=== PATIENT | male | born 2000 | race Caucasian/White ===

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

== ENCOUNTER → 2022-10-09 | Outpatient (CLI) | payer OTHER, SELFPAY ==
--- NOTE | 2022-10-09 16:30 | US_ITS ---
EXAM: US SOFT TISSUES HEAD AND NECK, THYROID CLINICAL INDICATION: ENLARGED THYROID VS LYMPH NODE ON RT TECHNIQUE: Fregoso scale and color doppler imaging was performed of the thyroid gland. COMPARISON: No relevant prior studies available. FINDINGS: LEFT THYROID LOBE: Left thyroid lobe measures 4.2 x 1.3 x 1.6 cm with uniform echogenicity. Incidental 3 mm colloid cyst is noted. RIGHT THYROID LOBE: Right thyroid lobe measures 5.6 x 1.3 x 1.6 cm. Normal homogeneous echotexture. No thyroid nodules are present. ISTHMUS: Isthmus measures 3 mm in AP dimension. No thyroid nodules are present. US/Thyroid IMPRESSION: No significant thyroid findings. Electronically Signed: Foster Christopher MD at 8:50 EDT ,
== END | disposition home or self-care (01) ==
LOC: US 16:29
PROVIDERS: PCP Family Medicine; Referring Provider Family Medicine; Visit Provider Family Medicine
DX: E04.9 Nontoxic goiter, unspecified (principal)
CPT/HCPCS: 76536

== ENCOUNTER 2023-02-23 23:39 | Emergency (ER) | payer OTHER, SELFPAY ==
[2023-02-23 23:40] VITALS: BP 143/87; PULSE 74; RESP 15; TEMP 36.3; O2SAT 99; BMI 31.1
--- NOTE | 2023-02-24 02:04 | EX.ED.DYSGE1 ---
HPI History of Present Illness Chief Complaint: Ear Problem Informant: patient Narrative Narrative: Patient is a 22-year-old male with no significant past medical history. He reports he had 2 to 3 days of nasal congestion sore throat and cough. He reportedly went to an urgent care yesterday where he had a negative COVID and strep swab. He states that today he developed left sided ear pain. He denies any trauma or discharge from the ear and he states there is been no recent water exposure. He states that despite taking [id number] medication the pain has persisted and he is concerned he has now developed a ear infection and comes in for evaluation [facility] Medical History (Updated 02/24/23 @ 02:[address] Darron Brown, DO) Acute pharyngitis, unspecified Aphthous ulcer of mouth Encounter for screening for COVID-19 GERD (gastroesophageal reflux disease) Pyloric stenosis Home Medications omeprazole 20 mg capsule,delayed release 40 mg PO DAILY 05/11/18 [History Last Taken 05/11/18] famotidine 20 mg tablet 40 mg PO DAILY 07/02/19 [History Last Taken Unknown] azelastine 137 mcg (0.1 %) nasal spray aerosol 2 spray intranasal BID #30 mL 02/24/23 [Rx Last Taken Unknown] cefdinir 300 mg capsule 300 mg PO BID 7 days #14 caps 02/24/23 [Rx Last Taken Unknown] prednisone 20 mg tablet 40 mg (2 x 20 mg) PO DAILY 7 days #14 tabs 02/24/23 [Rx Last Taken Unknown] Allergy/AdvReac Type Severity Reaction Status Date / Time amoxicillin [From Augmentin] Allergy Hives Verified 02/23/23 23:43 clavulanic acid Allergy Hives Verified 02/23/23 23:43 [From Augmentin] Family History Other Cancer Diabetes Hypertension Myocardial infarction Surgical History History of tonsillectomy Social History Smoking Status: Never smoker alcohol intake: never ROS ROS ED Constitutional Constitutional ED: Denies chills or fever(s) ENT ENT ED: Reports ear pain, rhinorrhea and sore throat Cardiovascular Cardiovascular: Denies chest pain Respiratory/Chest Respiratory/Chest: Reports cough; Denies dyspnea Gastrointestinal Gastrointestinal: Denies abdominal pain, diarrhea, nausea or vomiting Genitourinary Genitourinary ED: Denies dysuria Musculoskeletal Musculoskeletal: Reports myalgias Integumentary Denies rash Neurologic Neurologic: Denies headache(s) Hematologic/Lymphatic Hematologic/Lymphatic: Denies easy bleeding or easy bruising EXAM Physical Exam Const Vital Signs: 02/23/23 23:40 02/24/23 02:23 Temperature 97.4 F L Temperature Source Temporal Pulse Rate 74 79 Respiratory Rate 15 18 Blood Pressure 143/87 H 126/67 H Blood Pressure Mean 105 Pulse Ox 99 100 Oxygen Delivery Method Room Air Positive well nourished and well developed General Appearance ED: well developed HEENT HEENT Narrative: Nasal mucosa is hyperemic and boggy with enlarged inferior nasal turbinates Cobblestoning is noted in the posterior pharynx consistent with sinus drainage without secondary changes to suggest infection Right TM and canal are normal. Left canal is normal but the left TM is erythematous and bulging with loss of landmarks consistent with otitis media Eyes PERRL and EOMs intact bilaterally Neck supple Neck Narrative: No nuchal rigidity or meningeal signs noted Resp normal respiratory effort and clear to auscultation bilaterally Cardio regular rate and regular rhythm Extremity normal to inspection Neuro oriented x3, CN's II-XII intact bilaterally and no sensory deficits noted Sensorium / Orientation: alert Motor Exam: strength 5/5 throughout Psych mental status grossly normal Skin no rashes or lesions noted MDM MDM MDM Narrative Medical decision making narrative: Patient presented to the ER with stable vitals. Differential diagnosis is for upper respiratory tract infection versus otitis media versus otitis externa versus eustachian tube dysfunction. Physical exam showed a left tympanic membrane which was asymmetric to right with erythema loss of landmarks and bulging consistent with infection. He does not physical exam findings to suggest otitis externa or mastoiditis. As he is recent been tested for strep and COVID I feel no need for repeat testing. Therefore this time patient has an upper respiratory tract infection with secondary left otitis media and therefore he will be started on antibiotics but as there is no signs of systemic infection, mastoiditis, or malignant otitis externa he is otherwise safe for discharge History & Record Review Discussion w/independent historian: Patient Discharge Plan Triage Chief Complaint: Ear Problem ED Provider: Darron Brown Dx/Rx/DC Orders Clinical Impression: Acute left otitis media, URI (upper respiratory infection) Instructions: ED Otitis Media Antibiotic ... Prescriptions: New prednisone 20 mg tablet 40 mg PO DAILY 7 Days Qty: 14 0RF cefdinir 300 mg capsule 300 mg PO BID 7 Days Qty: 14 0RF azelastine 137 mcg (0.1 %) aerosol,spray 2 spray intranasal BID Qty: 30 0RF Rx Instructions: administer into each nostril No Action omeprazole 20 MG capsule 40 mg PO DAILY famotidine 20 MG tablet 40 mg PO DAILY Stand Alone Forms: ED Work / School Excuse Primary Care Provider: Mesha Kim Referrals: Mesha Kim MD [Primary Care Provider] - Disposition Disposition: Home, Self Care Discharge Date/Time: 02/24/23 02:24
[2023-02-24] MEDS: Oxycodone/Apap 5/325 Tablet PO (02:12)
[2023-02-24] MEDS: dexAMETHasone 10 MG/ML Vial PO.IVFORM (02:12)
[2023-02-24] MEDS: Cefdinir 300 MG Capsule PO (02:17)
[2023-02-24 02:23] VITALS: BP 126/67; PULSE 79; RESP 18; O2SAT 100
== END 2023-02-24 02:24 | disposition home or self-care (01) ==
PROVIDERS: Emergency Provider Emergency Medicine; PCP Family Medicine; Visit Provider Emergency Medicine
DX: J06.9 Acute upper respiratory infection, unspecified (principal); H66.92 Otitis media, unspecified, left ear; K21.9 Gastro-esophageal reflux disease without esophagitis
CPT/HCPCS: 99283

== ENCOUNTER → 2023-11-26 | Outpatient (CLI) | payer OTHER, SELFPAY | END | disposition home or self-care (01) | LOC: LABSPEC 10:47 | PROVIDERS: PCP Family Medicine; Referring Provider Physician Assistant; Visit Provider Physician Assistant | DX: N39.0 Urinary tract infection, site not specified (principal) | CPT/HCPCS: 87086 ==

== ENCOUNTER → 2024-03-01 | Outpatient (CLI) | payer OTHER, SELFPAY ==
[2024-03-01 17:51] LABS: Absolute Lymphocyte Count 2.51 X10^3/uL (0.83-4.51); Absolute Neutrophil Count 9.4 X10^3/uL (2.0-7.7); Basophil# 0.04 X10^3/uL; Basophil% 0.3 % (0-1); Eosinophil# 0.07 X10^3/uL; Eosinophils% 0.5 % (0-5); Hematocrit 46.2 % (40-54); Hemoglobin 15.5 g/dL (13.0-16.5); Lymphocyte # 2.51 X10^3/ul (0.83-4.51); Lymphocyte % 19.5 % (19-41); Mean Corp Hgb Conc 33.5 g/dL (32-36); Mean Corpuscular Hgb 29.1 pg (27.0-32.0); Mean Corpuscular Volume 86.7 fL (80-94); Mean Platelet Vol. 10.4 fl (6.2-12.0); Monocyte# 0.79 X10^3/uL; Monocyte% 6.2 % (0-10); NRBC Flagged by Analyzer 0 % (0-5); Neutrophil # 9.37 X10^3/uL (2.7-7.7); Platelet Count 271 K/mm3 (150-450); RBC Distribution Width CV 13.4 % (11.6-14.6); RBC Distribution Width SD 42.2 fl (35.1-43.9); Red Blood Count 5.33 M/mm3 (4.6-6.2); White Blood Count 12.8 K/mm3 (4.4-11.0)
[2024-03-01 18:14] LABS: ALB/GLOB Ratio 1.3 RATIO (0.9-2.4); AST(SGOT) 16 U/L (15-37); Alanine Aminotransfer ALT/SGPT 29 U/L (16-61); Albumin, Serum 4.3 g/dL (3.2-5.0); Alkaline Phosphatase 80 U/L (45-117); Anion Gap 8 (5-15); BUN 11 mg/dL (7-18); BUN/Creat Ratio 14.2 RATIO (10-20); Calcium,Total 9.5 mg/dL (8.5-10.1); Chloride 106 mmol/L (98-107); Cholesterol 153 mg/dL (200); Creatinine, Serum 0.78 mg/dL (0.70-1.30); EST Glomerular Filtration Rate 133 mL/min (>60); Est Glom Filt Rate - Afr Amer 161 mL/min (>60); Globulin 3.2 g/dL (2.2-4.2); Glucose 79 mg/dL (74-106); High Density Lipoprotein 51 mg/dL; Potassium 3.5 mmol/L (3.5-5.1); Protein, Total 7.5 g/dL (6.4-8.2); Sodium Level 139 mmol/L (136-145); Triglycerides 45 mg/dL; Very Low Density Lipoprotein 9 mg/dL (5-40)
== END | disposition home or self-care (01) ==
LOC: MTLAB 16:15
PROVIDERS: PCP Family Medicine; Referring Provider Family Medicine; Visit Provider Family Medicine
DX: Z00.00 Encounter for general adult medical examination without abnormal findings (principal); K21.9 Gastro-esophageal reflux disease without esophagitis
CPT/HCPCS: 36415; 80053; 80061; 84443; 85025

== ENCOUNTER → 2024-05-05 | Outpatient (CLI) | payer OTHER, SELFPAY ==
[2024-05-05 16:46] LABS: Erythrocyte Sedimentation Rate 2 mm/hr (0-20)
[2024-05-05 17:11] LABS: CRP 4.27 mg/L (0.0-3.0)
[2024-05-09 16:09] LABS: ACCA 115 units (0-90); ALCA 94 units (0-60); AMCA 219 units (0-100); Cytoplasmic Ab (C-ANCA) <1:20 titer (Neg:<1:20); Gastrin, Serum 72 pg/mL (0-115); Perinuclear Ab (P-ANCA) <1:20 titer (Neg:<1:20); gASCA 15 units (0-50)
[2024-05-11 06:08] LABS: Anti-Centromere B Ab <0.2 AI (0.0-0.9); Anti-Chromatin 0.3 AI (0.0-0.9); Anti-Jo <0.2 AI (0.0-0.9); Anti-Scleroderma-70 AB <0.2 AI (0.0-0.9); Anti-dsDNA Ab <1 IU/mL (0-9); Beef <0.10 kU/L (Class 0); Chocolate <0.10 kU/L (Class 0); Codfish <0.10 kU/L (Class 0); Corn 0.21 kU/L (Class 0/I); Egg, Whole <0.10 kU/L (Class 0); Milk (Cow) 0.11 kU/L (Class 0/I); Mussels <0.10 kU/L (Class 0); Peanut 0.43 kU/L (Class I); Pork <0.10 kU/L (Class 0); SJOGREN'S Anti-SS-A test < 0.2 AI (0.0-0.9); SJOGREN'S Anti-SS-B test < 0.2 AI (0.0-0.9); Salmon <0.10 kU/L (Class 0); Shrimp <0.10 kU/L (Class 0); Smith Ab <0.2 AI (0.0-0.9); Soybean 0.17 kU/L (Class 0/I); Tuna <0.10 kU/L (Class 0); Wheat 0.26 kU/L (Class 0/I)
== END | disposition home or self-care (01) ==
LOC: LAB 15:48
PROVIDERS: PCP Family Medicine; Referring Provider Internal Medicine Gastroenterology; Visit Provider Internal Medicine Gastroenterology
DX: K21.9 Gastro-esophageal reflux disease without esophagitis (principal)
CPT/HCPCS: 36415; 82941; 83516; 85652; 86003; 86005; 86036; 86037; 86140; 86225; 86235; 86671

== ENCOUNTER 2024-07-12 11:53 | Day surgery (SDC) | payer OTHER, SELFPAY ==
--- NOTE | 2024-07-10 15:51 | PAT.ANESEVAL ---
Pre-Assessment Diagnosis/Proposed Procedure Planned Operative Procedure(s): EGD W/ PH PROBE PLACEMENT Anesthesia History Anesthesia History - digital forensic examiner: Anesthesia History - digital forensic examiner Hx Hospitalization No 07/10/24 15:40 Any Problems With Anesthesia No 07/10/24 15:40 Cholinesterase deficiency No 07/10/24 15:40 You/Your Family Experience No 07/10/24 15:40 fever (hyperthermia) with Relationship Recent Exposure to Contagious Disease Does patient have nerve No 07/10/24 15:40 stimulator Patient instructed to have device shut off --Does patient have Pacemaker or ICD? When Was Last Pacemaker Check QUESTION #4 FULL TEXT: You/Your Family Experience fever (hyperthermia) with Anesthesia Last Oral Intake Last Oral intake: Last Oral Intake NPO since Meds taken in AM with sips of water? Meds patient instructed to take am of surgery PONV PONV - digital forensic examiner: PONV - digital forensic examiner Female No 07/10/24 15:40 HX of Motion Sickness No 07/10/24 15:40 HX of N/V After Surgery No 07/10/24 15:40 Non-Smoker No 07/10/24 15:40 Duration of Surgery greater Yes 07/10/24 15:40 than 60 minutes Number of Risk Factors 1 07/10/24 15:40 PONV Score Low Risk 07/10/24 15:40 Height & Weight Height & Weight: Anesthesia: Height & Weight Height 6 ft 3 in 02/23/23 23:40 Respiratory Assessment Respiratory Assessment - digital forensic examiner: Respiratory Tract Infection Hx - digital forensic examiner Hx Respiratory Tract Infection No 07/10/24 15:40 STOP Sleep Apnea STOP Sleep Apnea - digital forensic examiner: STOP Sleep Apnea - digital forensic examiner Hx Hypertension No 07/10/24 15:40 Hx Sleep Apnea No 07/10/24 15:40 CPAP BIPAP Do you snore loudly (louder No 07/10/24 15:40 than talking or can be heard Do you often feel tired/ No 07/10/24 15:40 fatigued/ sleepy during daytime? Has anyone observed you stop No 07/10/24 15:40 breathing during sleep? STOP Results Negative 07/10/24 15:40 QUESTION #5 FULL TEXT : Do you snore loudly (louder than talking or can be heard through closed doors)? 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 Specify any problems Hx of Preganancy in last 3 N/A 07/10/24 15:40 Months Nurse Filling Out Transfusion VCHRISTIN 07/10/24 15:40 & Questions: Date: 07/10/24 07/10/24 15:40 Time: 15:41 07/10/24 15:40 Patient unable to answer at this time (ie. confused, unrespo /Reproduction History /Reproductive History - digital forensic examiner: /Reproductive Hx- digital forensic examiner Hx Now No 07/10/24 15:40 Gestational Age (in weeks): EDC: Hx Hx Para Hx Section SAB No 07/10/24 15:40 [facility] Medical History (Updated 07/10/24 @ 15:40 by Katelyn Morris) Wears glasses MRSA infection Anxiety Alcohol use Back pain Injury of back History of Crohn's disease Gastric reflux Vapes nicotine containing substance Chewing tobacco nicotine dependence History of irregular heartbeat GERD (gastroesophageal reflux disease) Acute pharyngitis, unspecified Aphthous ulcer of mouth Encounter for screening for COVID-19 Pyloric stenosis Home Medications ?Medication ?Instructions ?Recorded ?Last Taken ?Type fexofenadine 180 mg tablet 180 mg PO QDAY 05/05/24 Unknown History montelukast 10 mg tablet 10 mg PO QDAY 05/05/24 Unknown History pantoprazole 40 mg tablet,delayed 40 mg PO QDAY 05/05/24 Unknown History release Allergy/AdvReac Type Severity Reaction Status Date / Time amoxicillin (From Augmentin) Allergy Hives Verified 07/10/24 15:32 clavulanic acid (From Allergy Hives Verified 07/10/24 15:32 Augmentin) Family History Other Cancer Diabetes Hypertension Myocardial infarction Surgical History History of tonsillectomy Social History Smoking Status: Current every day smoker tobacco type: e-cigarettes and smokeless tobacco alcohol intake: never Audit: Pertinent Findings Pertinent Findings EKG Perinent findings: 07/21/2017 normal sinus rhythm 91 bpm normal EKG Recommendation Anesthesia Recommendation Anesthesia recommendation: OPTIMIZED for anesthesia
[2024-07-12] VITALS (8 sets, daily range): BP systolic 104–122; BP diastolic 64–76; PULSE 58–71; RESP 14–18; TEMP 36.6–36.9; O2SAT 94–100; BMI 29.5
--- NOTE | 2024-07-12 12:30 | PCM.HP.STD ---
HPI - General General Date of Admission: 07/12/24 Date of Service: 07/12/24 Chief Complaint: GERD HPI Narrative JORGE MARTINEZ, is a 24 M who presentsADADillon MARTINEZ, is a 24 M who presents to endoscopy today for an EGD. *[facility] established 12.6.24 pt reports long hx of GERD. Pt has tried omeprazole and famotidine without relief. Pt is currently taking 40mg Pantoprazole and said it helps a little, but is still having constant HB. Pt reports it does not matter if he has eaten or not. Pt reports having a bm every 2 days and has had diarrhea more often recently. Pt reports nausea after eating about 3-4 times a week. Pt reports he has never had an EGD. Pt reports frequent epigastric pain that he describes as cramping and stabbing. [facility] Medical History Wears glasses MRSA infection Anxiety Alcohol use Back pain Injury of back History of Crohn's disease Gastric reflux Vapes nicotine containing substance Chewing tobacco nicotine dependence History of irregular heartbeat GERD (gastroesophageal reflux disease) Acute pharyngitis, unspecified Aphthous ulcer of mouth Encounter for screening for COVID-19 Pyloric stenosis Home Medications ?Medication ?Instructions ?Recorded ?Last Taken ?Type fexofenadine 180 mg tablet 180 mg PO QDAY 05/05/24 07/11/24 History montelukast 10 mg tablet 10 mg PO QDAY 05/05/24 07/11/24 History pantoprazole 40 mg tablet,delayed 40 mg PO QDAY 05/05/24 07/09/24 History release Allergy/AdvReac Type Severity Reaction Status Date / Time amoxicillin (From Augmentin) Allergy Hives Verified 07/12/24 12:08 clavulanic acid (From Allergy Hives Verified 07/12/24 12:08 Augmentin) Family History Other Cancer Diabetes Hypertension Myocardial infarction Surgical History History of tonsillectomy Social History Smoking Status: Current every day smoker tobacco type: e-cigarettes and smokeless tobacco alcohol intake: never ROS Constitutional Constitutional: Denies fatigue, fever(s), poor appetite, weight gain or weight loss Gastrointestinal Gastrointestinal: Denies belching, bloating, change in bowel habits, change in stool character, chewing difficulty, coffee ground emesis, constipation, cramping, diarrhea, dyspepsia, dysphagia, early satiety, excessive flatus, fecal incontinence, heartburn, hematemesis, hematochezia, hemorrhoids, loose stools, melena, nausea, odynophagia, rectal bleeding, tenesmus, vomiting or weight changes Vital Signs Vital Signs Vital Signs: 07/12/24 12:13 07/12/24 12:13 Temperature 98.4 F Temperature Source Temporal Pulse Rate 71 Respiratory Rate 16 Respiratory Pattern Normal Blood Pressure 122/76 H Blood Pressure Mean 91 Blood Pressure Source Monitor Blood Pressure Position Sitting Blood Pressure Location Left Arm Pulse Ox 100 Oxygen Delivery Method Room Air Weight Weight: 235 lb 14.314 oz Body Mass Index (BMI) 29.5 Physical Exam Const alert, oriented x3, no apparent distress and healthy appearing General Appearance: cooperative GI normal to inspection, nondistended, normoactive bowel sounds, soft to palpation, non-tender and non-distended Percussion: normal to percussion Rectal Exam: deferred Assessment & Plan Assessment/Plan (1) GERD (gastroesophageal reflux disease): PLAN: Assessment and Plan (1) GERD (gastroesophageal reflux disease): Status: Acute Plan: He will undergo gastric emptying study along with the upper endoscopy to evaluate his upper GI tract. We will perform an upper GI endoscopy and placed Marie capsule. He will get a gastric emptying study to see how his gastric emptying may be contributing to his reflux disease. He will stop his proton pump inhibitors approximately 5 to7 days prior to procedure. He is okay with this plan. Orders:
--- NOTE | 2024-07-12 12:33 | PCM.PRE.AN2 ---
ASA Classification* ASA Classification ASA Classification: 2 Assessment & Plan Anesthesia* Anesthesia Assessment Anesthesia Assessment: Discussed sedation and/or anesthesia options, risks, benefits, and alternatives with patient/parents/legal guardian/POA. Questions invited. The patient/parents/legal guardian/POA seems to understand and agrees to proceed with anesthesia plan. Reviewed the physical assessment, medical history, allergy history and patient home medications list prior to surgery/procedure/anesthetic and documented any changes. Performed airway and anesthesia risk assessments. Anesthesia Type Anesthesia Type: MAC Anesthesia Focused Assessment* Temperature: 98.4 F Pulse Rate: 71 Blood Pressure: 122/76 Respiratory Rate: 16 Pulse Ox: 100 Airway Assessment Mouth opens: >3 cm Mallampati Score: II Focused Labs Anesthesia Preop lab: CBC WBC 12.8 K/mm3 (4.4-11.0) H 03/01/24 16:19 03/01/24 RBC 5.33 M/mm3 (4.6-6.2) 03/01/24 16:19 03/01/24 Hgb 15.5 g/dL (13.0-16.5) 03/01/24 16:19 03/01/24 Hct 46.2 % (40-54) 03/01/24 16:19 03/01/24 Plt Count 271 K/mm3 (150-450) 03/01/24 16:19 03/01/24 CHEMISTRY Potassium 3.5 mmol/L (3.5-5.1) 03/01/24 16:19 03/01/24 Sodium 139 mmol/L (136-145) 03/01/24 16:19 03/01/24 BUN 11 mg/dL (7-18) 03/01/24 16:19 03/01/24 Creatinine 0.78 mg/dL (0.70-1.30) 03/01/24 16:19 03/01/24 Glucose 79 mg/dL (74-106) 03/01/24 16:19 03/01/24 TSH 1.600 uIU/mL (0.358-3.740) 03/01/24 16:19 03/01/24 COAG Pre-Assessment Diagnosis/Proposed Procedure Planned Operative Procedure(s): EGD W/ PH PROBE PLACEMENT Anesthesia History Anesthesia History - staff readiness officer: Anesthesia History - staff readiness officer Hx Hospitalization No 07/10/24 15:40 Any Problems With Anesthesia No 07/10/24 15:40 Cholinesterase deficiency No 07/10/24 15:40 You/Your Family Experience No 07/10/24 15:40 fever (hyperthermia) with Relationship Recent Exposure to Contagious No 07/12/24 12:13 Disease Does patient have nerve No 07/10/24 15:40 stimulator Patient instructed to have device shut off --Does patient have Pacemaker No 07/12/24 12:13 or ICD? When Was Last Pacemaker Check QUESTION #4 FULL TEXT: You/Your Family Experience fever (hyperthermia) with Anesthesia Last Oral Intake Last Oral intake: Last Oral Intake NPO since 22:00 07/12/24 12:13 Meds taken in AM with sips of No 07/12/24 12:13 water? Meds patient instructed to take am of surgery PONV PONV - staff readiness officer: PONV - staff readiness officer Female No 07/10/24 15:40 HX of Motion Sickness No 07/10/24 15:40 HX of N/V After Surgery No 07/10/24 15:40 Non-Smoker No 07/10/24 15:40 Duration of Surgery greater Yes 07/10/24 15:40 than 60 minutes Number of Risk Factors 1 07/10/24 15:40 PONV Score Low Risk 07/10/24 15:40 Height & Weight Height & Weight: Anesthesia: Height & Weight Height 6 ft 3 in 07/12/24 12:13 Weight: 107 kg 07/12/24 12:13 Body Mass Index (BMI) 29.5 07/12/24 12:13 Respiratory Assessment Respiratory Assessment - staff readiness officer: Respiratory Tract Infection Hx - staff readiness officer Hx Respiratory Tract Infection No 07/10/24 15:40 STOP Sleep Apnea STOP Sleep Apnea - staff readiness officer: STOP Sleep Apnea - staff readiness officer Hx Hypertension No 07/10/24 15:40 Hx Sleep Apnea No 07/10/24 15:40 CPAP BIPAP Do you snore loudly (louder No 07/10/24 15:40 than talking or can be heard Do you often feel tired/ No 07/10/24 15:40 fatigued/ sleepy during daytime? Has anyone observed you stop No 07/10/24 15:40 breathing during sleep? STOP Results Negative 07/10/24 15:40 QUESTION #5 FULL TEXT : Do you snore loudly (louder than talking or can be heard through closed doors)? Tobacco Use History Tobacco Use History - staff readiness officer: Tobacco Use History - staff readiness officer Tobacco Use Smoking Status Current every day smoker 07/10/24 15:40 Hx Tobacco Use Yes 07/10/24 15:40 Years Smoking Packs Smoked per Day Smoking Cessation Date was within the last 15 years Hx Smoking Cessation Date Hx Smoking Cessation Counseling Hematologic Medial History Hematologic Hx - staff readiness officer: Hematologic Medical Hx - clinical documentation consultant Hx of Blood Transfusion No 07/10/24 15:40 Hx of Transfusion in last 3 No 07/10/24 15:40 Months Date of Last Transfusion (if within last 3 months) Ever experience any problems No 07/10/24 15:40 with transfusion(s)? Specify any problems Hx of Preganancy in last 3 N/A 07/10/24 15:40 Months Nurse Filling Out Transfusion VCHRISTIN 07/10/24 15:40 & Questions: Date: 07/10/24 07/10/24 15:40 Time: 15:41 07/10/24 15:40 Patient unable to answer at this time (ie. confused, unrespo /Reproduction History /Reproductive History - staff readiness officer: /Reproductive Hx- staff readiness officer Hx Now No 07/10/24 15:40 Gestational Age (in weeks): EDC: Hx Hx Para Hx Section SAB No 07/10/24 15:40 PFSH Medical History Wears glasses MRSA infection Anxiety Alcohol use Back pain Injury of back History of Crohn's disease Gastric reflux Vapes nicotine containing substance Chewing tobacco nicotine dependence History of irregular heartbeat GERD (gastroesophageal reflux disease) Acute pharyngitis, unspecified Aphthous ulcer of mouth Encounter for screening for COVID-19 Pyloric stenosis Home Medications ?Medication ?Instructions ?Recorded ?Last Taken ?Type fexofenadine 180 mg tablet 180 mg PO QDAY 05/05/24 07/11/24 History montelukast 10 mg tablet 10 mg PO QDAY 05/05/24 07/11/24 History pantoprazole 40 mg tablet,delayed 40 mg PO QDAY 05/05/24 07/09/24 History release Allergy/AdvReac Type Severity Reaction Status Date / Time amoxicillin (From Augmentin) Allergy Hives Verified 07/12/24 12:08 clavulanic acid (From Allergy Hives Verified 07/12/24 12:08 Augmentin) Family History Other Cancer Diabetes Hypertension Myocardial infarction Surgical History History of tonsillectomy Social History Smoking Status: Current every day smoker tobacco type: e-cigarettes and smokeless tobacco alcohol intake: never Review of Systems (Anesthesia) ROS Narrative System reviewed and no additional complaints, except as documented.
--- NOTE | 2024-07-12 13:15 | EGD_PTH ---
PATIENT: JORGE MARTINEZ LOC: [facility] U#:[id number] AGE/SX: 24/M ROOM: RE07/12/[address]: Dr. Gennaro Frederick DO : 2000 BED: DIS: 07/12/2024 SPEC #: [id number] RECD: 07/12/24 14:37 STATUS: CHRIS YARELIS #: [id number] LILIBETH: 07/12/24 13:[address]: Gennaro Frederick DEPT: SURGICAL PATHOLOGY RECD BY: Aretha Mensah ENTERED: 07/13/24 07:23 SP TYPE: EGD BIOPSY FLORINDA DR: Dr. Mesha Kim MD Tissues: A - Duodenum, NOS B - Esophagus, NOS Procedures: Special Stain Group I Surgery Specimen Level IV Alcian Blue/PAS (control) HEADER OPERATION: EGD, PH-probe placement PRE-OP DIAGNOSIS: GERD TISSUE SUBMITTED: A- Duodenum biopsy, B- Distal esophagus biopsy MICROSCOPIC DIAGNOSIS A. Duodenum, biopsy: Fragments of duodenal mucosa with mild non-specific chronic inflammation, congestion and hemorrhage. B. Distal esophagus, biopsy: Fragments of gastroesophageal mucosa with chronic inflammation. Intestinal metaplasia (goblet cell metaplasia) not identified. See comment. 07/14/2024 COMMENT B. Alcian blue/PAS stain with matched control is used in the evaluation of the specimen. Increased number of eosinophils (about 15-20 per high power field) are also noted suspicious for eosinophilic esophagitis. Correlation with clinical, endoscopic findings and appropriate follow up are necessary. MICROSCOPIC DESCRIPTION Slides are reviewed. GROSS DESCRIPTION A. Received in fixative is one container labeled with the patient's name and designated Duodenum biopsy. The specimen consists of two irregular fragments of light andino soft tissue that in aggregate measure 1 x 0.5 x 0.2 cm. The specimen is totally submitted in one cassette. B. Received in fixative is one container labeled with the patient's name and designated Distal esophagus biopsy. The specimen consists of multiple irregular fragments of light andino soft tissue that in aggregate measure 1 x 0.5 x 0.2 cm. The specimen is totally submitted in one cassette. CW.mr 07/13/2024 TC:3 CPT:26816v8 ,[id number]
--- NOTE | 2024-07-12 13:34 | OP.EGD_ITS ---
Patient Name: Jake Wells Procedure Date: 07/12/2024 1:05 PM Date of : 2000 Age: 24 Procedure: Upper GI endoscopy Indications: Heartburn, Reflux esophagitis, Failure to respond to medical treatment Providers: Gennaro Frederick DO Referring MD: Gennaro Frederick DO Medicines: Monitored Anesthesia Care Patient Profile: This is a 24 year old male. Refer to note in patient chart for documentation of history and physical. Patient has symptoms of chronic dyspepsia, chronic heartburn, chronic nausea and chronic regurgitation. Complications: No immediate complications. Procedure: Pre-Anesthesia Assessment: - Prior to the procedure, a History and Physical was performed, and patient medications and allergies were reviewed. The patient is competent. The risks and benefits of the procedure and the sedation options and risks were discussed with the patient. All questions were answered and informed consent was obtained. Patient identification and proposed procedure were verified by the physician in the pre-procedure area. Mental Status Examination: alert and oriented. Airway Examination: normal oropharyngeal airway and neck mobility. Respiratory Examination: clear to auscultation. CV Examination: normal. Prophylactic Antibiotics: The patient does not require prophylactic antibiotics. Prior Anticoagulants: The patient has taken no anticoagulant or antiplatelet agents except for NSAID medication. ASA Grade Assessment: II - A patient with mild systemic disease. After reviewing the risks and benefits, the patient was deemed in satisfactory condition to undergo the procedure. The anesthesia plan was to use monitored anesthesia care (MAC). Immediately prior to administration of medications, the patient was re-assessed for adequacy to receive sedatives. The heart rate, respiratory rate, oxygen saturations, blood pressure, adequacy of pulmonary ventilation, and response to care were monitored throughout the procedure. The physical status of the patient was re-assessed after the procedure. After obtaining informed consent, the endoscope was passed under direct vision. Throughout the procedure, the patient's blood pressure, pulse, and oxygen saturations were monitored continuously. The Endoscope was introduced through the mouth, and advanced to the second part of duodenum. The upper GI endoscopy was accomplished without difficulty. The patient tolerated the procedure well. Scope In: 1:20:07 PM Scope Out: 1:28:42 PM Total Procedure Duration Time 0 hours 8 minutes 35 seconds Findings: There were esophageal mucosal changes suspicious for short-segment Huddleston's esophagus present in the lower third of the esophagus. The maximum longitudinal extent of these mucosal changes was 3 cm in length. Mucosa was biopsied with a cold forceps for histology in a targeted manner at intervals of 1 cm in the lower third of the esophagus. One specimen bottle was sent to pathology. Verification of patient identification for the specimen was done. Estimated blood loss was minimal. The JONES capsule with delivery system was introduced through the mouth and advanced into the esophagus, such that the JONES pH capsule was positioned 40 cm from the incisors, which was 6 cm proximal to the GE junction. Suction was applied to the well of the JONES pH capsule to suck in the adjacent mucosa of the esophagus using the external vacuum pump set at a minimum vacuum pressure of 550 mmHg for 30 seconds. The JONES pH capsule was then deployed by depressing the plunger on top of the handle to advance the locking pin into the mucosa, thereby attaching the capsule to the esophagus. The plunger was then rotated a quarter turn clockwise to release the capsule from the delivery system. The delivery system was then withdrawn. Endoscopy was utilized for probe placement and diagnostic evaluation. A small hiatal hernia was present. Bilious fluid was found in the gastric body. Mildly erythematous mucosa without active bleeding and with no stigmata of bleeding was found in the duodenal bulb. Biopsies were taken with a cold forceps for histology. Verification of patient identification for the specimen was done. Estimated blood loss was minimal. Impression: - Esophageal mucosal changes suspicious for short-segment Huddleston's esophagus. Biopsied. - Small hiatal hernia. - Bilious gastric fluid. - Erythematous duodenopathy. Biopsied. Recommendation: - Discharge patient to home. - Resume previous diet. - Continue present medications. - Await pathology results. Procedure Code(s): --- Professional --- 77959, Esophagogastroduodenoscopy, flexible, transoral; with biopsy, single or multiple CPT copyright 2021 [employer] [employer]. All rights reserved. The codes documented in this report are preliminary and upon geospatial systems integrator review may be revised to meet current compliance requirements. Gennaro Frederick DO 07/12/2024 1:33:31 PM This report has been signed electronically. Number of Addenda: 0 Note Initiated On: 07/12/2024 1:05 PM
--- NOTE | 2024-07-12 13:34 | OP.CCLET_ITS ---
07/12/2024 Mesha Kim [place] [id number] [place] [address] Re : Upper GI endoscopy procedure for Jake Russell Dear Dr. Kim This procedure was performed on Friday, July 12, 2024. My impressions and recommendations are as follows: Impressions : - Esophageal mucosal changes suspicious for short-segment Huddleston's esophagus. Biopsied. - Small hiatal hernia. - Bilious gastric fluid. - Erythematous duodenopathy. Biopsied. Recommendations : - Discharge patient to home. - Resume previous diet. - Continue present medications. - Await pathology results. My findings are described in the full procedure note, which is enclosed. If I can be of further assistance, please feel free to contact me at . Sincerely, Gennaro Frederick, 07/12/2024 1:33:31 PM This report has been signed electronically.
--- NOTE | 2024-07-12 13:39 | PCM.POST.ANE ---
Anesthesia: Postop Eval I Current Vital Signs Temperature: 98.2 F Pulse Rate: 64 Blood Pressure: 111/64 Respiratory Rate: 16 Pulse Ox: 96 Oxygen Delivery Method: Room Air Assessment Airway patent: Yes Spontaneous unlabored respirations: Yes Mental status: Awake and Calm nausea: No Vomiting: No Anesthesia Complication: No Fluid Hydration Crystalloid volume administer (ml): 30 Total IV fluid infused: 30 Progress Note Anesthesia document: Postop Eval 1 completed: Yes
--- NOTE | 2024-07-12 13:49 | PCM.POSTANE2 ---
Anesthesia Postop Eval I Sum Postop Eval Completion status Anesthesia document: Postop Eval 1 completed: Yes Anesthesia Postop Eval I Summary Anesthesia Postop Eval I Summary: Anesthesia Postop Eval I: Assessment Summary Airway patent Yes 07/12/24 13:40 [email or web address] Spontaneous unlabored Yes 07/12/24 13:40 [email or web address] respirations Mental status Awake,Calm 07/12/24 13:40 [email or web address] nausea No 07/12/24 13:40 [email or web address] Vomiting No 07/12/24 13:40 [email or web address] Anesthesia Postop Eval I: Fluid Summary Crystalloid volume administer 30 07/12/24 13:40 [email or web address] (ml) Colloids volume administered ( ml) Blood Product volume administered (ml) Total IV fluid infused 30 07/12/24 13:40 [email or web address] Anesthesia Postop Eval I: Summary Notes Anesthesia Complication No 07/12/24 13:40 [email or web address] Anesthesia Complication Comment: Post-operative progress note Anesthesia: Postop Eval II Evaluation Mental status: Awake Pain Level: 0 nausea: No Vomiting: No
== END 2024-07-12 14:03 | disposition home or self-care (01) ==
LOC: EN 11:56 → AC 11:57
PROVIDERS: PCP Family Medicine; Referring Provider Internal Medicine Gastroenterology; Visit Provider Internal Medicine Gastroenterology
PROC: (CPT 43235; principal; 2024-07-12 13:10)
DX: K21.9 Gastro-esophageal reflux disease without esophagitis (principal); K44.9 Diaphragmatic hernia without obstruction or gangrene; Z79.899 Other long term (current) drug therapy; F17.290 Nicotine dependence, other tobacco product, uncomplicated; F17.220 Nicotine dependence, chewing tobacco, uncomplicated; K22.89 Other specified disease of esophagus; K31.89 Other diseases of stomach and duodenum
CPT/HCPCS: 43235; 88305; 88312; A4216; J2405